=== PATIENT | female | born 1985 | race Caucasian/White ===

== ENCOUNTER → 2016-08-09 15:04 | Outpatient (CLI) | payer BC ==
[2009-08-03 06:05] VITALS: BMI 34.0
== END | disposition home or self-care (01) ==
LOC: D.MAMMO 08-06 11:00 → D.US 08-06 13:00 → D.MAMMO 08:30
DX: N64.4 Mastodynia (principal)

== ENCOUNTER → 2019-06-11 13:53 | Outpatient (CLI) | payer BC ==
[2009-08-03 06:05] VITALS: BMI 34.0
== END | disposition home or self-care (01) ==
LOC: D.MAMMO 13:00 → D.US 13:53
PROVIDERS: ATTEND Family Medicine
DX: Z12.31 Encounter for screening mammogram for malignant neoplasm of breast (principal); E03.9 Hypothyroidism, unspecified

== ENCOUNTER → 2019-10-19 16:01 | Outpatient (CLI) | payer BC ==
[2009-08-03 06:05] VITALS: BMI 34.0
[2019-10-19 16:25] LABS: BILIRUBIN NEGATIVE (NEGATIVE); GLUCOSE NEGATIVE (NEGATIVE); HCG URINE NEGATIVE (NEGATIVE); KETONE NEGATIVE (NEGATIVE); NITRITE NEGATIVE (NEGATIVE); SPECIFIC GRAVITY 1.015 (1.005-1.020); UROBILINOGEN NORMAL (NORMAL)
== END | disposition home or self-care (01) ==
LOC: D.LABREF 16:01
PROVIDERS: ATTEND Orthopaedic Surgery
DX: R10.9 Unspecified abdominal pain (principal)

== ENCOUNTER → 2019-10-22 12:33 | Outpatient (CLI) | payer BC ==
[2009-08-03 06:05] VITALS: BMI 34.0
== END | disposition home or self-care (01) ==
LOC: D.RAD 12:33 → D.CT 12:33
PROVIDERS: ATTEND Family Medicine
DX: R10.32 Left lower quadrant pain (principal); R11.0 Nausea; R50.9 Fever, unspecified

== ENCOUNTER → 2020-02-24 18:44 | Outpatient (CLI) | payer BC ==
[2009-08-03 06:05] VITALS: BMI 34.0
[2020-02-24 20:28] LABS: BASOPHILS 0.4 % (0-2); EOSINOPHILS 1.4 % (0-7); HEMATOCRIT 58.9 % (36.0-48.0); HEMOGLOBIN 19.8 g/dL (12-16); IMMATURE GRANULOCYTES 0.2 % (0-5); LYMPHOCYTES 49.4 % (15-50); MCH 32.1 pg (26.0-34.0); MCHC 33.6 g/dL (31.0-37.0); MCV 95.5 fL (80.0-100.0); MEAN PLATELET VOLUME 9.7 fL (7.4-10.4); NEUTROPHILS 41.6 % (40-80); PLATELET COUNT 169 10x3/uL (130-400); RBC 6.17 10x6/uL (4.00-5.40); RDW 12.5 % (11.5-14.5); WBC 5.2 10x3/uL (4.8-10.8)
[2020-02-24 21:15] LABS: ALBUMIN 3.9 g/dL (3.4-5.0); ALKALINE PHOSPHATASE 89 U/L (30-120); ALT (SGPT) 41 U/L (10-68); BILIRUBIN - TOTAL 0.71 mg/dL (0.2-1.3); CALC OSMOLALITY 271 mosm/kg (275-300); CALCIUM 9.1 mg/dL (8.5-10.1); CHLORIDE - SERUM 104 mmol/L (98-107); CHOL - HDL RATIO 3.4 ratio (2.3-4.1); CHOLESTEROL, TOTAL 156 mg/dL (0-200); CREATININE - SERUM 0.8 mg/dL (0.6-1.3); GLUCOSE 77 mg/dL (74-106); HDL CHOLESTEROL 46 mg/dL (32-96); LDL CHOLESTEROL 92 mg/dL (0-100); POTASSIUM - SERUM 4.2 mmol/L (3.5-5.1); PROTEIN - SERUM 7.2 g/dL (6.4-8.2); SODIUM 137 mmol/L (136-145); T4 THYROXINE 8.5 ug/dL (4.7-13.3); TRIGLYCERIDE 91 mg/dL (30-200); UREA NITROGEN 11 mg/dL (7-18); eGFR NON AFRICAN AMERICAN 86 mL/min (90-120)
[2020-02-26 07:15] LABS: THYROID PEROXIDASE ABS <9 IU/mL (0-34)
[2020-02-28 08:08] LABS: THYROGLOBULIN ANTIBODY 1.2 IU/mL (0.0-0.9)
== END | disposition home or self-care (01) ==
LOC: D.LABREF 18:44
PROVIDERS: ATTEND Orthopaedic Surgery
DX: Z00.00 Encounter for general adult medical examination without abnormal findings (principal); R53.83 Other fatigue

== ENCOUNTER 2020-10-12 08:58 | Outpatient (CLI) | payer BC ==
[2009-08-03 06:05] VITALS: BMI 34.0
== END 2020-10-12 09:15 | disposition home or self-care (01) ==
LOC: D.LDO 08:58
PROVIDERS: ATTEND Obstetrics & Gynecology
DX: O36.8190 Decreased fetal movements, unspecified trimester, not applicable or unspecified (principal)

== ENCOUNTER → 2020-10-19 09:09 | Outpatient (CLI) | payer BC ==
[2009-08-03 06:05] VITALS: BMI 34.0
== END | disposition home or self-care (01) ==
LOC: D.LDO 09:09
PROVIDERS: ATTEND Obstetrics & Gynecology
DX: O26.893 Other specified pregnancy related conditions, third trimester (principal); Z3A.30 30 weeks gestation of pregnancy

== ENCOUNTER 2020-10-30 12:27 | Outpatient (CLI) | payer BC ==
[2009-08-03 06:05] VITALS: BMI 34.0
== END 2020-10-30 13:03 | disposition home or self-care (01) ==
LOC: D.LDO 12:27
PROVIDERS: ATTEND Obstetrics & Gynecology
DX: O24.419 Gestational diabetes mellitus in pregnancy, unspecified control (principal)

== ENCOUNTER 2020-11-07 17:11 | Outpatient (CLI) | payer BC ==
[2009-08-03 06:05] VITALS: BMI 34.0
== END 2020-11-07 17:49 | disposition home or self-care (01) ==
LOC: D.LDO 17:11
PROVIDERS: ATTEND Student in an Organized Health Care Education/Training Program
DX: O24.419 Gestational diabetes mellitus in pregnancy, unspecified control (principal)

== ENCOUNTER 2020-11-10 11:43 | Outpatient (CLI) | payer BC ==
[2009-08-03 06:05] VITALS: BMI 34.0
[2020-11-10] MEDS ORDERED: GLYBURIDE2.5 MG PO (15:07)
[2020-11-10] MEDS ORDERED: PRENAVITE1 TAB PO (15:07)
[2020-11-10] MEDS ORDERED: PROTONIX20 MG PO (15:08)
== END 2020-11-10 11:50 | disposition home or self-care (01) ==
LOC: D.LDO 11:43
PROVIDERS: ATTEND Obstetrics & Gynecology
DX: O24.419 Gestational diabetes mellitus in pregnancy, unspecified control (principal)

== ENCOUNTER 2020-11-13 16:40 | Outpatient (CLI) | payer BC ==
[2009-08-03 06:05] VITALS: BMI 34.0
[~2020-11-13 16:40] MED LIST: GLYBURIDE2.5 MG PO; PRENAVITE1 TAB PO; PROTONIX20 MG PO
== END 2020-11-13 17:35 | disposition home or self-care (01) ==
LOC: D.LDO 16:40
PROVIDERS: ATTEND Obstetrics & Gynecology
DX: O26.899 Other specified pregnancy related conditions, unspecified trimester (principal); Z3A.00 Weeks of gestation of pregnancy not specified

== ENCOUNTER 2020-11-20 16:50 | Outpatient (CLI) | payer BC ==
[2009-08-03 06:05] VITALS: BMI 34.0
== END 2020-11-20 17:46 | disposition home or self-care (01) ==
LOC: D.LDO 16:50
PROVIDERS: ATTEND Obstetrics & Gynecology
DX: O24.419 Gestational diabetes mellitus in pregnancy, unspecified control (principal)

== ENCOUNTER 2020-11-23 08:43 | Outpatient (CLI) | payer BC ==
[2009-08-03 06:05] VITALS: BMI 34.0
== END 2020-11-23 09:34 | disposition home or self-care (01) ==
LOC: D.LDO 08:43
PROVIDERS: ATTEND Obstetrics & Gynecology
DX: O24.419 Gestational diabetes mellitus in pregnancy, unspecified control (principal)

== ENCOUNTER → 2020-11-27 18:23 | Outpatient (CLI) | payer BC ==
[2009-08-03 06:05] VITALS: BMI 34.0
== END | disposition home or self-care (01) ==
LOC: D.LDO 18:23
PROVIDERS: ATTEND Obstetrics & Gynecology
DX: O24.419 Gestational diabetes mellitus in pregnancy, unspecified control (principal)